=== PATIENT | male | born 1960 | race Hispanic/Latino ===

== ENCOUNTER 2023-03-15 09:10 | Emergency (ER) | payer OTHER, MEDICARE ==
[2023-03-15] MEDS ORDERED: traMADol HCl 50 MG TAB ONE (11:05)
[2023-03-15] MEDS ORDERED: predniSONE 20 MG TAB ONE (11:06)
== END 2023-03-15 11:54 | disposition home or self-care (01) ==
LOC: CSHERS 09:10
DX: M10.9 Gout, unspecified (principal); I12.9 Hypertensive chronic kidney disease with stage 1 through stage 4 chronic kidney disease, or unspecified chronic kidney disease; N18.9 Chronic kidney disease, unspecified
CPT/HCPCS: 99283; J7512